=== PATIENT | male | born 2000 | race Caucasian/White ===

== ENCOUNTER 2023-01-29 18:28 | Inpatient (IN) ==
[2023-01-29] MEDS ORDERED: Nicotine PATCH 21 MG/24 HR PATCH TRANSDERM ONE (22:19)
[2023-01-29] MEDS ORDERED: Al Hydrox/Mg Hydrox/Simet LIQ 30 ML UDC PO PRN (22:56)
[2023-01-29 23:56] LABS: ABS Basophils 0.1 10^3/uL (0.0-0.1); ABS Eosinophils 0.5 10^3/uL (0.0-0.5); ABS Lymphocytes 3.7 10^3/uL (1.0-4.8); ABS Monocytes 0.9 10^3/uL (0.0-1.1); ABS Neutrophils 3.5 10^3/uL (1.5-7.6); ABS Nucleated RBC 0.01 10^3/ul; Eosinophil % 5.4 %; Hematocrit 41.6 % (38-53); Hemoglobin 14.8 g/dL (13.2-16.3); Lymphocyte % 42.5 %; Mean Corpuscular Hemoglobin 32.5 pg (27-33); Mean Corpuscular Hgb Conc 35.7 g/dL (31-36); Mean Corpuscular Volume 90.9 fL (80-97); Mean Platelet Volume 8.9 fL (7.5-11.2); Nucleated Red Blood Cells % 0.1 /100 WBC (0.0-0.4); Platelet Count 171 10^3/uL (150-450); Red Blood Count 4.58 10^6/uL (4.06-5.63); Red Cell Distribution Width 12.8 % (12-17); White Blood Count 8.6 10^3/uL (3.6-10.2)
[2023-01-30 00:16] LABS: Albumin 4.1 g/dL (3.2-5.2); Anion Gap 10 mmol/L (2-16); CO2 Carbon Dioxide 26 mmol/L (22-32); Chloride 107 mmol/L (101-111); Potassium 3.8 mmol/L (3.5-5.0); Sodium 143 mmol/L (135-145)
[2023-01-30 00:22] LABS: ALT 47 U/L (7-52); AST 101 U/L (13-39); Albumin/Globulin Ratio 1.7 (1-3); Alkaline Phosphatase 61 U/L (35-149); Blood Urea Nitrogen 11 mg/dL (6-24); Creatinine, Serum 0.94 mg/dL (0.67-1.17); Globulin 2.4 g/dL (2-4); Glucose 93 mg/dL (70-100); Total Protein 6.5 g/dL (6.4-8.9); eGFR CKD-EPI 117.5 (>60)
[2023-01-30 00:33] LABS: Acetaminophen < 15 mcg/mL; Alcohol, S < 13 mg/dL (<13); Salicylate < 2.50 mg/dL (<30)
[2023-01-30 00:39] LABS: Urine Appearance Cloudy; Urine Bacteria Absent (Absent); Urine Bilirubin Negative (Negative); Urine Blood Negative (Negative); Urine Color Amber; Urine Glucose Negative (Negative); Urine Ketones Negative (Negative); Urine Nitrite Negative (Negative); Urine Protein 1+(30 mg/dL) (Negative); Urine Red Blood Cell Trace(0-2/hpf) (Absent); Urine Specific Gravity 1.034 (1.002-1.030); Urine Squamous Epithelial Cell Present (Absent); Urine Urobilinogen Positive (Negative); Urine White Blood Cell Trace(0-5/hpf) (Absent)
[2023-01-30 00:45] LABS: TSH Ultra Thyroid Stim Horm 1.41 mcIU/mL (0.34-5.60)
[2023-01-30 01:02] LABS: Urine Benzodiazepine Screen None Detected (None Detect); Urine Cannabinoids Screen Presumptive Positive (None Detect); Urine Opiates Screen None Detected (None Detect)
[2023-01-30] MEDS: Nicotine Lozenge mini 2 MG LOZNG.MINI MT PRN ×4 (03:08→22:37)
[2023-01-30] MEDS: Nicotine GUM 2MG FRUIT FLAVOR PO PRN ×2 (08:19→23:50)
[2023-01-30] MEDS: Vitamin THERAPEUTIC TAB PO SCH (08:19)
[2023-01-30] MEDS: Nicotine PATCH 21 MG/24 HR PATCH TRANSDERM SCH (09:27)
[2023-01-30 14:04] LABS: Urine Benzodiazepine Screen None Detected (None Detect); Urine Buprenorphine Screen None Detected (None Detect); Urine Cannabinoids Screen Presumptive Positive (None Detect); Urine Fentanyl Screen None Detected (None Detect); Urine Hydrocodone Screen None Detected (None Detect); Urine Opiates Screen None Detected (None Detect)
[2023-01-30] MEDS: Albuterol HFA INHALER 8 gm MDI INH PRN (23:58)
[2023-01-31] MEDS: Nicotine Lozenge mini 2 MG LOZNG.MINI MT PRN ×6 (02:35→21:36)
[2023-01-31] MEDS: Nicotine GUM 2MG FRUIT FLAVOR PO PRN ×4 (07:52→22:56)
[2023-01-31] MEDS: Nicotine PATCH 21 MG/24 HR PATCH TRANSDERM SCH (08:40)
[2023-01-31] MEDS: Vitamin THERAPEUTIC TAB PO SCH (08:41)
[2023-01-31 08:52] LABS: HDL Cholesterol 44.3 mg/dL
[2023-02-01] MEDS: Vitamin THERAPEUTIC TAB PO SCH (09:51)
[2023-02-01] MEDS: Nicotine GUM 2MG FRUIT FLAVOR PO PRN ×2 (09:52→21:04)
[2023-02-01] MEDS: Nicotine Lozenge mini 2 MG LOZNG.MINI MT PRN ×2 (09:52→14:42)
[2023-02-01] MEDS: Nicotine PATCH 21 MG/24 HR PATCH TRANSDERM SCH (09:54)
[2023-02-02] MEDS: Nicotine Lozenge mini 2 MG LOZNG.MINI MT PRN ×4 (00:25→21:56)
[2023-02-02] MEDS: Vitamin THERAPEUTIC TAB PO SCH (10:24)
[2023-02-02] MEDS: Nicotine PATCH 21 MG/24 HR PATCH TRANSDERM SCH (10:26)
[2023-02-02] MEDS: Nicotine GUM 2MG FRUIT FLAVOR PO PRN ×3 (16:26→23:05)
[2023-02-02] MEDS: Albuterol HFA INHALER 8 gm MDI INH PRN (17:02)
[2023-02-03] MEDS: Vitamin THERAPEUTIC TAB PO SCH (08:37)
[2023-02-03] MEDS: Nicotine PATCH 21 MG/24 HR PATCH TRANSDERM SCH (08:37)
[2023-02-03 11:44] VITALS: BP 111/62
== END 2023-02-03 11:18 | disposition home or self-care (01) | DRG 754 ==
LOC: ED 18:28 → BSU 01-30 → EDHOLD 01-30 00:46 → BSU 01-30 01:37
PROVIDERS: ADMIT Psychiatry & Neurology Psychiatry; ATTEND Psychiatry & Neurology Psychiatry